=== PATIENT | male | born 1975 | race African-American/Black ===

== ENCOUNTER 2017-01-21 14:21 | Emergency (ER) | payer SELFPAY ==
[2017-01-21] MEDS ORDERED: IBUPROFEN 800 MG TABLET PO ONE (14:43)
--- NOTE | 2017-01-21 14:43 | ER Document Report ---
HPI - HPI Patient complains to provider of: right side neck pain Onset: This morning Onset/Duration: Sudden Quality of pain: Achy, Cramping Severity: Severe Pain Level: 4 Context: Patient presents emergency department with complaints of right-sided neck pain. Patient reports he slept on a different pillow last night and when he woke up his neck was hurting. He has takenTylenol without relief of pain. Denies trauma. Denies other symptoms such as fever vomiting diarrhea. Associated Symptoms: None Exacerbated by: Movement Relieved by: Denies Similar symptoms previously: No Recently seen / treated by doctor: No - DERM Skin Color: Normal Past Medical History - General Information source: Patient - Social History Smoking Status: Unknown if Ever Smoked Cigarette use (# per day): No Frequency of alcohol use: None Drug Abuse: None Family History: None Patient has suicidal ideation: No Patient has homicidal ideation: No - Medical History Medical History: Negative Renal/ Medical History: Denies: Hx Peritoneal Dialysis Surgical Hx: Negative Vertical Provider Document - CONSTITUTIONAL Agree With Documented VS: Yes Exam Limitations: No Limitations General Appearance: WD/WN, Mild Distress - winces when turning head - INFECTION CONTROL TRAVEL OUTSIDE OF THE [place] IN LAST 30 DAYS: No - HEENT HEENT: Atraumatic, Normocephalic. negative: Conjuctival Injection, Pharyngeal Exudate, Pharyngeal Tenderness, Pharyngeal Erythema, Tympanic Membrane Red, Tympanic Membrane Bulging - NECK Neck: Normal Inspection - no obvious deformity, reports right side neck ttp, chin to chest without c/o pain, no vertebral pain. no erythema/warmth or swelling - RESPIRATORY Respiratory: Breath Sounds Normal, No Respiratory Distress O2 Sat by Pulse Oximetry: 97 - CARDIOVASCULAR Cardiovascular: Regular Rate, Regular Rhythm - MUSCULOSKELETAL/EXTREMETIES Musculoskeletal/Extremeties: MAEW, FROM - NEURO Level of Consciousness: Awake, Alert, Appropriate Motor/Sensory: No Motor Deficit - DERM Integumentary: Warm, Dry Adult Front & Back Diagram: 1 - reports pain with movement Course - Re-evaluation Re-evalutation: 01/21/17 14:50 Patient instructed on wry neck. Heat pack placed Motrin ordered. Patient instructed on muscle relaxers. He verbalized understanding to all instructions. - Vital Signs Vital signs: Temp Pulse Resp BP Pulse Ox 98.7 F 85 16 144/110 H 97 01/21/17 14:26 01/21/17 14:26 01/21/17 14:26 01/21/17 14:26 01/21/17 14:26 Discharge - Discharge Clinical Impression: Wry neck, Elevated blood pressure reading Condition: Stable Disposition: HOME, SELF-CARE Instructions: Torticollis ([facility]), Use of Iyxx-Url-Ruxbnuv Ibuprofen ([facility]), Muscle Relaxers ([facility]) Additional Instructions: *You have been evaluated for a wry neck *Take medication as prescribed *Rest/ heat packs as indicated *Follow up with a primary care provider within one week for recheck *Return to ED for worsening condition, changes, needs Monitor your blood pressure. Your blood pressure was elevated today. This may be because you were anxious, in pain or because you need medication. It is important to follow up with your primary care provider for full evaluation. Prescriptions: Cyclobenzaprine HCl [Flexeril 5 mg Tablet] 5 mg PO TID #15 tablet Forms: Elevated Blood Pressure
[2017-01-21 15:09] VITALS: BP 123/86
== END 2017-01-21 15:00 | disposition home or self-care (01) ==
LOC: ER 14:21
DX: M43.6 Torticollis (principal); R03.0 Elevated blood-pressure reading, without diagnosis of hypertension; M54.2 Cervicalgia
CPT/HCPCS: 99283